=== PATIENT | female | born 2000 | race Two or more races ===

== ENCOUNTER 2024-12-03 14:45 | Outpatient (CLI) | payer OTHER | END 2024-12-03 14:59 | disposition home or self-care (01) | LOC: RAD 14:45 | PROVIDERS: ATTEND Orthopaedic Surgery | DX: M25.522 Pain in left elbow (principal); M79.632 Pain in left forearm ==

== ENCOUNTER 2024-12-04 15:22 | Outpatient (CLI) | payer OTHER | END 2024-12-04 15:23 | disposition home or self-care (01) | LOC: TOM 15:22 | PROVIDERS: ATTEND Orthopaedic Surgery | DX: S52.042 Displaced fracture of coronoid process of left ulna (principal) ==

== ENCOUNTER 2024-12-15 08:35 | Outpatient (CLI) | payer OTHER ==
[2024-12-15 09:31] LABS: BASO % 0.6 % (0.1-1.2); EOS % 4.4 % (0.7-7.0); HEMATOCRIT 43.6 % (40.1-51.0); HEMOGLOBIN 14.6 g/dL (13.7-17.5); LYMPH # 2.33 (1.18-3.74); LYMPH % 25.9 % (19.3-53.1); MEAN CORPUSCULAR HEMOGLOBIN 28.9 pg (25.6-32.2); MONO # 0.69 (0.24-0.82); MONO % 7.7 % (4.7-12.5); NEUT # 5.51 (1.56-6.13); NEUT % 61.2 % (34.0-71.1); PLATELET COUNT 333 K/uL (163-369); RED BLOOD COUNT 5.05 M/uL (4.63-6.08); RED CELL DISTRIBUTION WIDTH 12.3 % (11.6-14.4)
[2024-12-15 09:38] LABS: PH,URINE 5.5 (5.0-8.0); URINE APPEARANCE Clear; URINE BILIRRUBIN Negative (NEGATIVE); URINE BLOOD Negative; URINE COLOR Yellow; URINE GLUCOSE Negative (NEGATIVE); URINE KETONE Trace (NEGATIVE); URINE LEUKOCYTE Negative; URINE NITRATE Negative; URINE PROTEIN Negative (NEGATIVE); URINE UROBILINOGEN 0.2 E.U./dl
[2024-12-15 09:42] LABS: URINE BACTERIA 6.1 uL (0.0-1933); URINE RBC 4.2 uL (0.0-20.8); URINE WBC 4.5 uL (0.0-23.2)
[2024-12-15 09:57] LABS: URINE CAST 0.29 uL (0.0-1.40); URINE EPITHELIAL CELLS 1.1 uL (0.0-38.8)
[2024-12-15 10:02] LABS: COL EPI 87 SECONDS (82-175)
[2024-12-15 10:10] LABS: INR 1.14; PARTIAL THROMBOPLASTIN TIME 26.2 SECONDS (22.0-34.0); PROTHROMBIN TIME 12.3 SECONDS (9.0-11.5)
[2024-12-15 10:12] LABS: ALBUMIN 4.4 gm/dL (3.4-5.0); BILIRUBIN TOTAL 1.68 mg/dL (0.3-1.2); CALCIUM 10.5 mg/dL (8.5-10.1); CREATININE SERUM 0.89 mg/dL (0.70-1.30); GFR 105.93; GLOBULINA 3.6 G/DL (2.4-3.5); POTASSIUM 4.55 mEq/L (3.5-5.1)
== END 2024-12-15 08:45 | disposition home or self-care (01) ==
LOC: RAD 08:35
PROVIDERS: ATTEND Orthopaedic Surgery
DX: D64.9 Anemia, unspecified (principal); E88.89 Other specified metabolic disorders; D68.8 Other specified coagulation defects; N39.0 Urinary tract infection, site not specified; Z22.322 Carrier or suspected carrier of Methicillin resistant Staphylococcus aureus; E11.9 Type 2 diabetes mellitus without complications; Z76.89 Persons encountering health services in other specified circumstances

== ENCOUNTER 2025-02-05 14:49 | Outpatient (CLI) | payer OTHER | END 2025-02-05 14:56 | disposition home or self-care (01) | LOC: RAD 14:49 | PROVIDERS: ATTEND Orthopaedic Surgery | DX: S52.042 Displaced fracture of coronoid process of left ulna (principal) ==